=== PATIENT | female | born 1970 | race African-American/Black ===

== ENCOUNTER 2019-07-08 16:00 | Inpatient (IN) ==
[2019-07-08] MEDS ORDERED: NS 1,000 ML IV ONE (16:29)
[2019-07-08] MEDS ORDERED: ROCEPHIN 1 GM in NS 50 ML IV ONE (16:29)
[2019-07-08 16:42] LABS: INFLUENZA A POSITIVE (NEGATIVE); INFLUENZA B NEGATIVE (NEGATIVE)
[2019-07-08 16:49] LABS: BASO# 0.02 X1000 (0.0-0.2); BASO% 0.3 % (0.0-0.8); EOS# 0.01 X1000 (0.0-0.7); EOS% 0.1 % (0.0-10.0); HEMATOCRIT 39.4 % (37.0-47.0); HEMOGLOBIN 12.5 g/dL (12.0-16.0); IMM GRAN# 0.01 X1000 (0.0-0.04); IMM GRAN% 0.1 % (0.0-0.5); LYMPH# 0.71 X1000 (1.2-3.4); LYMPH% 10.1 % (20.5-51.1); MCH 27.3 PG (27-31); MCHC 31.7 g/dL (33-37); MONO# 0.66 X1000 (0.11-0.59); MONO% 9.4 % (1.7-9.3); NEUT# 5.59 X1000 (1.4-6.5); PLT 223 X1000 (130-400); RBC 4.58 XMIL (4.2-5.4); RDW 15.1 % (11.5-14.5)
[2019-07-08] MEDS ORDERED: MOTRIN PO ONE (17:00)
[2019-07-08] MEDS ORDERED: ZOFRAN ODT PO ONE (17:00)
[2019-07-08 17:02] LABS: INR 1.11; PROTIME 14.9 Seconds (11.0-16.0)
[2019-07-08 17:03] LABS: PTT 35.3 Seconds (22.3-41.8)
[2019-07-08 17:10] LABS: AGAP 11; ALBUMIN 4.1 g/dL (3.5-5.0); ALKALINE PHOSPHATASE 73 U/L (32-104); BUN 11 mg/dL (8-22); CALCIUM 8.8 mg/dL (8.8-10.2); CHLORIDE 104 mmol/L (98-107); COSMO 274; CREATININE 0.8 mg/dL (0.5-0.9); ESTIMATED GFR > 60; GLUCOSE 107 mg/dL (70-104); GOT 16 U/L (10-30); GPT 9 U/L (10-36); POTASSIUM 3.7 mmol/L (3.5-5.1); SODIUM 137 mmol/L (136-145); TCO2 22 mmol/L (25-35); TOTAL PROTEIN 7.4 g/dL (6.3-8.3)
[2019-07-08 17:13] LABS: CK PROFILE 207 U/L (24-173)
[2019-07-08 17:26] LABS: URINE SOURCE CLEAN CATCH
[2019-07-08 17:27] LABS: CK INDEX 0.7 (0.0-2.5)
--- NOTE | 2019-07-08 17:27 | Diag Imaging Result Doc PS360 ---
EXAM: CHEST-1 VIEW - 07/08/2019 HISTORY: fever/cough TECHNIQUE: Portable chest one view COMPARISON: 06/17/2019 FINDINGS: There is stable mild hepatomegaly. Inspiration is mildly shallow. Central vascular markings remain mildly prominent. There is mild infiltrate in the right base which is decreased. There is no substantial pleural effusion or pneumothorax identified. IMPRESSION: Mild infiltrate at right base which is decreased compared to prior. Electronically signed by Mina Rodrigez 07/08/2019 5:25 PM
[2019-07-08] MEDS ORDERED: TAMIFLU PO ONE (17:33)
[2019-07-08] MEDS ORDERED: DUONEB (A & A) INH ONE (17:35)
--- NOTE | 2019-07-08 17:39 | PROVIDER DOCUMENTATION ---
This chart was entered by Cira Lozano Scribe, acting as scribe for Ynes Henriquez MD. HPI-Fever - General Chief Complaint: SEPSIS ALERT - P Stated Complaint: FLU SX Time Seen by Provider: 07/08/19 16:25 Source: patient Allergies/Adverse Reactions: Patient Allergies Allergy/AdvReac Type Severity Reaction Status Date / Time No Known Allergies Allergy Verified 07/08/19 16:07 Home Medications: Home Medication List Medication Instructions Recorded Confirmed Last Taken Type Albuterol Sulfate Inhaler 2 puff INH Q6H PRN PRN #1 inhaler 10/20/17 07/08/19 07/08/19 23:00 Rx [Ventolin Hfa] Metformin [Glucophage] 500 mg PO BID CC 01/31/18 07/08/19 07/06/19 03:00 History Carvedilol [Coreg] 12.5 mg PO Q12HR #60 tab 02/05/18 07/08/19 07/06/19 03:00 Rx Furosemide [Lasix] 40 mg PO BID 30 Days #60 tab 08/14/18 07/08/19 07/06/19 03:00 Rx Omeprazole [Prilosec] 40 mg PO DAILY@0700 30 Days #30 cap 08/14/18 07/08/19 07/06/19 03:00 Rx Ipratropium/Albuterol INH 1 puff INH Q4H PRN #1 inhaler 11/07/18 07/08/19 07/06/19 10:00 Rx [Combivent Respimat Inhaler] Escitalopram [Lexapro] 10 mg PO DAILY 02/25/19 07/08/19 07/06/19 03:00 History CefDINIR [Omnicef] 300 mg PO BID #14 cap 07/10/19 Unknown Rx Oseltamivir [Tamiflu] 75 mg PO BID #7 cap 07/10/19 Unknown Rx - History of Present Illness-Fever Nature of Presenting Problem: Patient is a 49 y/o female presenting to the ED today c/o chest pain, fever/chills, cough, and vomiting. Patient reports onset of symptoms yesterday. Patient states she has chest pain that radiates to her back. Patient states she had three episodes of vomiting earlier today in addition to diarrhea. Patient states she has a history of CHF, COPD, hypertension, hyperlipidemia, and diabetes. Patient states she takes Lasix 40 mg daily. Patient reports her son and grandson have recently been diagnosed with the flu. Patient denies all other signs/symptoms. Fever Severity/Quality: reports: greater than 102 F Onset/Duration: reports: 24 hours ago Timing: reports: still present Context: reports: none Recent Illness?: reports: none Cognitive Baseline: alert, oriented x3 Associated Symptoms: reports: chest pain, cough, diarrhea, fever/chills, vomiting Similar Symptoms Previously?: No Recently seen or treated by another doctor?: No Review of Systems - Adult - REVIEW OF SYSTEMS - ADULT Constitutional: reports: chills, fever Eyes: reports: no symptoms reported Ears, Nose, Mouth & Throat: reports: no symptoms reported Cardiovascular: reports: chest pain Respiratory: reports: cough. denies: shortness of breath, wheezing Gastrointestinal: reports: diarrhea, nausea, vomiting. denies: abdominal pain Genitourinary: reports: no symptoms reported Musculoskeletal: reports: no symptoms reported Integumentary: reports: no symptoms reported Neurological: reports: no symptoms reported Psychiatric: reports: no symptoms reported Endocrine: reports: no symptoms reported Hematologic/Lymphatic: reports: no symptoms reported Allergic/Immunologic: reports: no symptoms reported All Other Systems: Reviewed and Negative Past History - Adult - PAST MEDICAL HISTORY-ADULT Review of Records: reports: Old Records Reviewed, Nursing Assessment Review, Medications Reviewed, Social history reviewed & non-contributory. Major Childhood Illnesses: reports: denies history Cardiovascular: reports: HTN Respiratory: reports: asthma Gastrointestinal: reports: denies history Obstetrical/Gynecological: reports: denies history Genitourinary: reports: denies history Musculoskeletal: reports: denies history Neurological: reports: denies history Psychiatric: reports: denies history Endocrine/Immune: reports: Diabetes Other Conditions: reports: denies history - PRIOR SURGERIES/PROCEDURES Surgical/Procedure History: reports: hysterectomy, BTL, tonsillectomy - IMMUNIZATION STATUS Childhood Immunizations: See Nurse Assessment Flu Vaccine: See Nurse Assessment - FAMILY HISTORY Family History: reviewed, not pertinent Physical Exam-General - PHYSICAL EXAM-ADULT Initial Vital Signs Reviewed: Yes - CONSTITUTIONAL General Appearance: alert, no apparent distress, obese - EYES Eyes: PERRL/EOMI - HEAD, EARS, NOSE, MOUTH & THROAT HENMT: moist mucous membranes, normal ENT inspection - NECK Neck: full range of motion, supple - RESPIRATORY Respiratory: lungs clear, normal breath sounds, no respiratory distress, no accessory muscle use - CARDIOVASCULAR Cardiovascular: normal peripheral pulses, no edema, no gallop, no murmur, tachycardia - GASTROINTESTINAL (ABDOMEN) Abdominal Exam: non tender, soft - MUSCULOSKELETAL Extremity: normal range of motion, normal gait, normal inspection, no pedal edema - SKIN Integumentary: normal color, normal turgor, warm/dry - NEUROLOGIC Neurologic: grossly normal - PSYCHIATRIC Psych/Mental Status: normal mood/affect, normal thought content, normal thought process Progress - PLAN OF CARE/RESULTS Progress/Plan/Lab Results: Orders Category Date Time Status Admit - [facility] Routine AdmDCTranf 07/08/19 17:54 Active Cardiac Monitoring DIRECTED Care 07/08/19 16:08 Completed IV Insertion ORDERED Care 07/08/19 16:08 Completed Notify MD of + Sepsis Screen NOW Care 07/08/19 16:08 Completed Notify Physician As Ordered Care 07/08/19 16:08 Active Repeat Vital Signs .Blood Pressure Care 07/08/19 17:34 Completed Diabetic Diet Diet 07/08/19 17:42 Completed CHEST-1 VIEW [RAD] Stat Exams 07/08/19 16:08 Completed BLOOD CULTURE [BLDCUL] Stat Lab 07/08/19 16:35 Results CBC WITH DIFF [HEME] Stat Lab 07/08/19 16:35 Completed CK PROFILE [SP CHEM] Stat Lab 07/08/19 16:35 Completed COMPREHENSIVE METABOLIC PANEL [CHEM] Stat Lab 07/08/19 16:35 Completed Flu [INFLUENZA SCREEN PL] Stat Lab 07/08/19 16:09 Completed LACTATE, PLASMA [CHEM] Lab 07/08/19 16:35 Completed PROTIME WITH INR [COAG] Stat Lab 07/08/19 16:35 Completed PTT [COAG] Stat Lab 07/08/19 16:35 Completed TROPONIN T Stat Lab 07/08/19 16:35 Completed URINALYSIS W/POSS RFLX CULT [URINALYSIS] Stat Lab 07/08/19 16:58 Completed 0.9% Sodium Chloride Inj [Ns] 1,000 ml Med 07/08/19 16:29 Discontinued IV 999 mls/hr Albuterol 2.5MG/Ipratrop 0.5MG [Duoneb (A & A)] Med 07/08/19 17:35 Discontinued 6 ml INH NOW ONE CefTRIAXONE [Rocephin] 1 gm Med 07/08/19 16:29 Discontinued 0.9% Sodium Chloride Inj [Ns] 50 ml IV NOW Ibuprofen [Motrin] Med 07/08/19 17:00 Discontinued 600 mg PO NOW ONE Ondansetron Odt [Zofran Odt] Med 07/08/19 17:00 Discontinued 4 mg PO NOW ONE Oseltamivir [Tamiflu] Med 07/08/19 17:33 Discontinued 75 mg PO NOW ONE Aerosol Treatments Routine Oth 07/08/19 17:35 Completed Aerosol Treatments Stat Oth 07/08/19 17:35 Completed Oxygen Device Stat Oth 07/08/19 16:08 Completed Transfer/Admit Order [TRANSFER] Routine Transfer 07/08/19 17:39 Completed Result Diagrams: 07/10/19 05:09 07/10/19 05:09 - REASSESSMENT Reassessment #1 Time Reassessed: 17:39 Status: improving (labs reviewed. not currently septic with normal white count and normal lactate.) - XRAY 1 XRAY Study: Chest Impression: See EMR Report (EXAM: CHEST-1 VIEW - 07/08/2019 HISTORY: fever/cough TECHNIQUE: Portable chest one view COMPARISON: 06/17/2019 FINDINGS: There is stable mild hepatomegaly. Inspiration is mildly shallow. Central vascular markings remain mildly prominent. There is mild infiltrate in the right base which is decreased. There is no substantial pleural effusion or pneumothorax identified. IMPRESSION: Mild infiltrate at right base which is decreased compared to prior. Electronically signed by Mina Rodrigez 07/08/2019 5:25 PM 07/08/19 1725 Interpreting Physician: Mina Rodrigez MD Dictated Date/Time: 07/08/19 172 cc: Dallas Francis MD; Mina Butler MD) - CONSULTS/PCP/HOSPITALIST Notification #1 *Consult/PCP/Hospitalist*: Dr. Davila Time Discussed: 17:05 Reason/Comments: admit for multiple comorbidities, influenza and resp distress Consult Disposition: Admit Departure - Departure Date of Disposition Decision: 07/08/19 Time of Disposition Decision: 17:37 DIAGNOSIS: Influenza A, SOB (shortness of breath) Disposition: ADMITTED INPATIENT 09 Certified Medical Emergency: Emergent Condition: Stable - Critical Care Note This patient required my direct & personal management of CC.: No Attestation - Physician/ KARIN Attestation Patient care was provided by Advanced Practice Provider:: No The physician spent face to face time with patient:: Yes Advanced Practice Provider documentation review:: Supervising physician onsite and consulted in the evaluation and care of this patient. The physician did have a face to face encounter with the patient. This chart was documented by the indicated scribe, (Cira Lozano Scribe) and accurately reflects the services I performed and decisions made by me, Ynes Henriquez MD, as attested by the provider's signature.
[2019-07-08 17:43] LABS: BILIRUBIN URINE NEGATIVE (NEGATIVE); BLOOD URINE MODERATE (NEGATIVE); COLOR YELLOW; GLUCOSE URINE 100 mg/dL (NEGATIVE); KETONE URINE TRACE mg/dL (NEGATIVE); LEUKOCYTES URINE NEGATIVE (NEGATIVE); NITRITE URINE NEGATIVE (NEGATIVE); PROTEIN URINE 30 mg/dL (NEGATIVE); TURBIDITY URINE CLEAR (CLEAR); UROBILINOGEN URINE 2 mg/dL (NORMAL)
[2019-07-08 17:44] LABS: UR EPITHELIAL CELLS <10 /HPF (<10); URINE BACTERIA NEGATIVE /HPF; URINE RBC <10 /HPF (<10); URINE WBC <10 /HPF (<10)
[2019-07-08] MEDS ORDERED: ZOFRAN IV PRN (22:22)
[2019-07-08] MEDS ORDERED: TYLENOL PO PRN (22:22)
[2019-07-08] MEDS ORDERED: VENTOLIN HFA INH PRN (22:22)
[2019-07-08] MEDS: DUONEB (A & A) INH PRN (22:34)
[2019-07-08] MEDS: NS 1,000 ML IV SCH (23:56)
[2019-07-09] MEDS: DUONEB (A & A) INH PRN ×3 (02:48→22:30)
[2019-07-09] MEDS: HUMULIN R (PARKWAY) SUBQ SCH ×3 (06:37→16:16)
[2019-07-09] MEDS: PRILOSEC PO SCH (06:39)
[2019-07-09 07:03] LABS: HEMOGLOBIN A1C 5.2 % (4.8-6.0)
[2019-07-09 07:05] LABS: BASO# 0.01 X1000 (0.0-0.2); BASO% 0.2 % (0.0-0.8); HEMATOCRIT 35.8 % (37.0-47.0); HEMOGLOBIN 11.2 g/dL (12.0-16.0); LYMPH# 0.56 X1000 (1.2-3.4); LYMPH% 11.1 % (20.5-51.1); MCH 27.4 PG (27-31); MCHC 31.3 g/dL (33-37); MCV 87.5 FL (81-99); MONO# 0.48 X1000 (0.11-0.59); MONO% 9.5 % (1.7-9.3); MPV 11.9 FL (7.4-10.4); NEUT# 3.98 X1000 (1.4-6.5); NEUT% 79.2 % (42.2-75.2); PLT 186 X1000 (130-400); RBC 4.09 XMIL (4.2-5.4); RDW 15.5 % (11.5-14.5); WBC 5.03 X1000 (4.8-10.8)
[2019-07-09 07:17] LABS: AGAP 10; BUN 10 mg/dL (8-22); CALCIUM 8.1 mg/dL (8.8-10.2); CHLORIDE 109 mmol/L (98-107); COSMO 281; CREATININE 0.7 mg/dL (0.5-0.9); ESTIMATED GFR > 60; GLUCOSE 105 mg/dL (70-104); POTASSIUM 3.3 mmol/L (3.5-5.1); SODIUM 141 mmol/L (136-145); TCO2 22 mmol/L (25-35)
[2019-07-09] MEDS ORDERED: KLOR-CON PO ONE (07:53)
[2019-07-09] MEDS: COREG PO SCH ×2 (09:27→20:40)
[2019-07-09] MEDS: TAMIFLU PO SCH ×2 (09:27→20:40)
[2019-07-09] MEDS: LASIX PO SCH ×2 (09:27→20:40)
[2019-07-09] MEDS: GLUCOPHAGE PO SCH ×2 (09:27→16:48)
[2019-07-09] MEDS: LEXAPRO PO SCH (09:27)
[2019-07-09] MEDS: NS 1,000 ML IV SCH (09:28)
[2019-07-09 09:40] LABS: CK INDEX 0.5 (0.0-2.5); CK-MB 2.77 ng/mL (0.0-5.0)
--- NOTE | 2019-07-09 11:57 | HISTORY AND PHYSICAL ---
PRIMARY CARE PROVIDER: Mina Butler MD CHIEF COMPLAINT: Flu symptoms. HISTORY OF PRESENT ILLNESS: Ms. Jimenez is a 49-year-old female who carries a past medical history of COPD, hypertension, asthma, diabetes mellitus type 2, diabetic neuropathy, and CHF. She reports that she had been around her son and grandson who had recently been diagnosed with the flu and came to the ED complaining of chest pain, fever, chills, cough, and vomiting that had started the day prior. She had about a total of 3 episodes, vomitus. Today, she continues just to complain of all over, chills and body aches. Her breathing is improved with O2. Upon arrival to the ED, her temperature was 102.7 degrees. Her O2 saturation was 88% on room air. She was initiated on Tamiflu and IV Rocephin for a right lower lobe pneumonia and flu A positive. Negative lactate. We will continue treatment with Tamiflu and ceftriaxone for her right lower lobe pneumonia. PAST MEDICAL HISTORY: Per HPI. PAST SURGICAL HISTORY: Bilateral tubal ligation, hysterectomy, and tonsillectomy. SOCIAL HISTORY: She lives at home. She has 2 sons. Smokes about a pack a day. No alcohol or illicit drugs. ALLERGIES: No known drug allergies. HOME MEDICATIONS: 1. Glucophage 500 mg p.o. b.i.d. 2. Lexapro 10 mg p.o. daily. 3. Coreg 12.5 mg p.o. q.12 hours. 4. Combivent inhaler 1 puff inhaled q.4 hours p.r.n. 5. Lasix 40 mg p.o. b.i.d. 6. Prilosec 40 mg p.o. daily. 7. Albuterol sulfate 2 puffs inhaled q.6 hours. REVIEW OF SYSTEMS: Completely negative except for those mentioned in HPI. PHYSICAL EXAMINATION: VITAL SIGNS: Temperature is 100.6 degrees, heart rate 100, respirations 20, blood pressure 144/84. O2 is 96% on room air. GENERAL: Ms. Jimenez is a 49-year-old female who is lying on her left side sleeping, in no acute distress. She awakens easily. HEENT: Atraumatic, normocephalic. PERRL. NECK: Supple. Trachea midline. CARDIOVASCULAR: Tachycardic, S1, S2 appreciated. RESPIRATORY: No use of accessory muscles. No respiratory distress. ABDOMEN: Soft, nontender, nondistended. MUSCULOSKELETAL: Patient moves all extremities well. SKIN: Warm, dry and intact. NEUROLOGIC: No focal deficits noted. LABORATORY DATA: White count 5, hemoglobin and hematocrit 11 and 35, platelet count 186,000. Sodium 141, potassium 3.3, BUN 10, creatinine 0.7, blood glucose 105. 2 sets of troponins have been negative. Influenza A positive. 2 plasma lactates were negative. ASSESSMENT AND PLAN: 1. Acute respiratory distress with hypoxemia upon arrival, improved with supplemental O2. 2. Influenza A positive. We will continue with Tamiflu. 3. Middle right infiltrate. We will continue with Rocephin. 4. Nausea, vomiting, and diarrhea, resolved. 5. Hypokalemia. We will do supplementation. 6. Diabetes mellitus type 2. We will continue with sliding scale, home medications and pattern blood sugars. 7. History of chronic obstructive pulmonary disease does not appear to be in exacerbation at this time. 8. Hypertension. Continue home medications. 9. Further recommendation to follow physician evaluation, laboratory and diagnostic data. Dictated by JIN Bedoya for Marcelino Davila MD cc: Marcelino Davila MD
--- NOTE | 2019-07-09 15:33 | PROGRESS NOTE ---
DATE: 07/09/2019 ADDENDUM: Essentially this lady with fever and shortness of breath. Temperature of 102.7 and she has acute influenza A. She seemed to be doing okay. She has an infiltrate so we are going to also cover her with antibiotics and see how she does. Hopefully, discharge in the next 24 hours. This is a [id number] encounter note with Veena Jones. cc: Marcelino Davila MD
[2019-07-09] MEDS ORDERED: ROCEPHIN 1 GM in NS 50 ML IV SCH (17:30)
[2019-07-10] MEDS: NS 1,000 ML IV SCH (00:49)
[2019-07-10 05:51] LABS: AGAP 12; BUN 9 mg/dL (8-22); CHLORIDE 108 mmol/L (98-107); COSMO 281; CREATININE 0.6 mg/dL (0.5-0.9); ESTIMATED GFR > 60; GLUCOSE 109 mg/dL (70-104); POTASSIUM 3.7 mmol/L (3.5-5.1); SODIUM 141 mmol/L (136-145); TCO2 21 mmol/L (25-35)
[2019-07-10 06:03] LABS: BASO# 0.01 X1000 (0.0-0.2); BASO% 0.3 % (0.0-0.8); EOS# 0.01 X1000 (0.0-0.7); EOS% 0.3 % (0.0-10.0); HEMATOCRIT 34.2 % (37.0-47.0); HEMOGLOBIN 10.5 g/dL (12.0-16.0); IMM GRAN# 0.01 X1000 (0.0-0.04); IMM GRAN% 0.3 % (0.0-0.5); LYMPH# 1.36 X1000 (1.2-3.4); LYMPH% 35.8 % (20.5-51.1); MCHC 30.7 g/dL (33-37); MCV 87.9 FL (81-99); MONO# 0.52 X1000 (0.11-0.59); MONO% 13.7 % (1.7-9.3); MPV 11.8 FL (7.4-10.4); NEUT# 1.89 X1000 (1.4-6.5); NEUT% 49.6 % (42.2-75.2); PLT 173 X1000 (130-400); RBC 3.89 XMIL (4.2-5.4); RDW 15.6 % (11.5-14.5)
[2019-07-10] MEDS: HUMULIN R (PARKWAY) SUBQ SCH ×4 (06:38→15:47)
[2019-07-10] MEDS: PRILOSEC PO SCH (06:43)
[2019-07-10] MEDS: DUONEB (A & A) INH PRN (08:01)
[2019-07-10] MEDS: GLUCOPHAGE PO SCH ×2 (08:22→16:25)
[2019-07-10] MEDS: TAMIFLU PO SCH (08:22)
[2019-07-10] MEDS: LASIX PO SCH (08:22)
[2019-07-10] MEDS: COREG PO SCH (08:22)
[2019-07-10] MEDS: LEXAPRO PO SCH (08:22)
--- NOTE | 2019-07-10 14:00 | DISCHARGE SUMMARY ---
ADMISSION DATE: 07/08/2019 DISCHARGE DATE: DISCHARGE DIAGNOSES: 1. Influenza A possibly a post flu pneumonia. 2. Diabetes. 3. Hypokalemia. 4. Chronic obstructive pulmonary disease. CONSULTATIONS: None. Briefly this is a 49-year-old female with COPD had some emesis and she was febrile to 102.7. She was hypoxic with a saturation of 88% and she was found to be flu A positive. Chest x-ray showed a right lower lobe infiltrate but it said it was improving. In any case she was empirically placed on antibiotics and Tamiflu. The following day she had no further fevers. Her saturations were 98% on room air had been over 24 hours since she had a fever so I felt stable for her discharge. She had no white count. DISCHARGE MEDICATIONS: Metformin 500 b.i.d., Coreg 12.5 q.12, Lexapro 10 daily, Lasix 40 b.i.d., metformin 500 b.i.d., Prilosec 40 daily, oseltamivir 75 b.i.d., Omnicef 300 p.o. b.i.d. for 7 days. She will need to follow up with her PCP in about a week or so, return for worsening shortness of breath. DISCHARGE FOLLOWUP: With Mina Butler. 32 minute discharge. cc: Marcelino Davila MD
[2019-07-10] MEDS: ROCEPHIN 1 GM in NS 50 ML IV SCH ×2 (15:36→16:25)
[2019-07-10 15:44] VITALS: BP 152/95
[2019-07-10] MEDS ORDERED: TAMIFLU PO ONE (16:00)
== END 2019-07-10 16:50 | disposition home or self-care (01) | DRG 194 ==
LOC: P.ED 16:00 → P.MEDSURG 16:00 → OBSVTOIN 20:51
PROVIDERS: ADMIT Internal Medicine; ATTEND Internal Medicine